=== PATIENT | male | born 1970 | race African-American/Black ===

== ENCOUNTER 2025-05-27 19:29 | Emergency (ER) | payer BC, SELFPAY ==
--- NOTE | ~2025-05-27 | CT_ITS ---
CT abdomen pelvis w con Clinical History: abdominal pain . Comparison: None Technique: Axial images lung bases to symphysis pubis 100 mL Omnipaque 350 Coronal, sagittal reformats CT images acquired with automatic exposure control for dose reduction DLP: 507 mGy-cm Findings: Lung bases: 11 mm nodule left base with central calcification. Visualized heart and pericardium: Unremarkable. Liver: Steatosis. Gallbladder: Unremarkable. Spleen: Unremarkable. Pancreas: Unremarkable. Adrenal glands: Unremarkable. Kidneys: Right kidney- No hydronephrosis. No renal stones. Left kidney- No hydronephrosis. No renal stones. Distal esophagus/stomach: Unremarkable. Small bowel loops: Normal caliber and wall thickness. Colon: Normal caliber and wall thickness. Normal RLQ appendix. Nodes: No enlarged nodes. Peritoneum: No ascites. No free air. Urinary bladder: Unremarkable. Prostate: Prominent. Bones: No acute bony abnormality. Soft tissues: Mild gynecomastia. Aorta: No aneurysm or dissection. IVC: Unremarkable. Main portal vein/SMV/splenic vein: Patent. IMPRESSION: 1. No acute findings. Reviewed, dictated and finalized at location R. IOLOGIST IMPRESSION: 1. No acute findings.
--- OUTSIDE RECORDS SUMMARY | 2025-05-27 15:45 | XMS_ITS | Encounter Summary ---
Author Organization [facility] Healthcare Address [address] [place] [id number] Care Team Providers Care Freight Conductor Name Role Phone Steph Suarez MD Primary Care Provider [phone] Reason for Visit * Reason Comments Urinary Frequency Encounter Details Date Type Department Care Team (Late st Contact Info) Description 05/27/2025 3:45 PM BUSINESS MANAGEMENT CONSULTANT Office Visit [facility] Family Medicine [address] [place] [address] [address] [place] [address] Steph Suarez MD [address] [place] [address] [address] [place] [address] Urinary frequency (Primary Dx); Essential hypertension; Type 2 diabetes mellitus without complication, without long-term current use of insulin (HCC); Mixed hyperlipidemia; Well adult exam Social History Tobacco Use Types Packs/Day Years Used Date Smoking Tobacco: Never Smokeless Tobacco: Never Alcohol Use Standard Drinks/Week Comments Yes 0 (1 standard drink = 0.6 oz pur e alcohol) AUDIT-C Answer Date Recorded Q1: How often do you have a drink containing alcohol? Never 01/17/2024 Q2: How many drinks containi ng alcohol do you have on a typical day when you are drinking? Patient does not drink Q3: How often do you have si x or more drinks on one occasion? Never 01/17/2024 PHQ-2 Answer Date Recorded PHQ-2 Total Score (If total score is 3 or more points, staff should administer the PHQ-9) 0 05/27/2025 PHQ-9 Answer Date Recorded PHQ-9 Total Score 9 05/27/2025 Sex and Gender Information Value Date Recorded Sex Assigned at Not on file Legal Sex Male 6:12 PM BUSINESS MANAGEMENT CONSULTANT Gender Identity Not on file Sexual Orientation Not on file documented as of this encounter Last Filed Vital Signs Vital Sign Reading Time Taken Comments Blood Pressure 138/90 05/27/2025 4:16 PM BUSINESS MANAGEMENT CONSULTANT Pulse 78 05/27/2025 4:16 PM BUSINESS MANAGEMENT CONSULTANT Temperature 37 C (98.6 F) 05/27/2025 4:16 PM BUSINESS MANAGEMENT CONSULTANT Respiratory Rate 16 05/27/2025 4:16 PM BUSINESS MANAGEMENT CONSULTANT Oxygen Saturation 98% 05/27/2025 4:16 PM BUSINESS MANAGEMENT CONSULTANT Inhaled Oxygen Concentration - - Weight 87.2 kg (192 lb 3.2 oz) 05/27/2025 4:16 P M BUSINESS MANAGEMENT CONSULTANT Height 175.3 cm (5' 9) 05/27/2025 4:16 PM BUSINESS MANAGEMENT CONSULTANT Body Mass Index 28.38 05/27/2025 4:16 PM BUSINESS MANAGEMENT CONSULTANT documented in this encounter Functional Status documented as of this encounter Ordered Prescriptions Prescription Sig Dispense Quantity Refills Last Filled Start Date End Date cefdinir (OMNICEF) 300 mg capsuleIndications :Urinary frequency Take 1 capsule (300 mg total) by mouth 2 (two) times a day for 10 days 20 capsule 05/27/2025 amLODIPine (NORVASC) 2.5 mg tablet Take 1 tablet (2.5 mg total) by mouth daily 30 tablet 1 05/27/2025 documented in this encounter Miscellaneous Notes * Assessment & Plan Note - Steph Suarez MD - 05/27/2025 3:45 PM BUSINESS MANAGEMENT CONSULTANT Associated Problem(s): Essential hypertension Orders: Urine culture Urine, clean voided; Future Thyroid Function [place]; Future PSA screen; Future Hemoglobin A1c; Future Urinalysis reflex to microscopic; Future Comprehensive metabolic panel; Future Lipid panel; Future CBC with auto differential; Future Albumin Creatinine Ratio, Urine; Future NESS MANAGEMENT CONSULTANT * Assessment & Plan Note - Steph Suarez MD - 05/27/2025 3:45 PM BUSINESS MANAGEMENT CONSULTANT Associated Problem(s): Urinary frequency Orders: Urine culture Urine, clean voided; Future Thyroid Function [place]; Future PSA screen; Future Hemoglobin A1c; Future Urinalysis reflex to microscopic; Future Comprehensive metabolic panel; Future Lipid panel; Future CBC with auto differential; Future Albumin Creatinine Ratio, Urine; Future cefdinir (OMNICEF) 300 mg capsule; Take 1 capsule (300 mg total) by mouth 2 (two) times a day for 10 days NESS MANAGEMENT CONSULTANT * Assessment & Plan Note - Steph Suarez MD - 05/27/2025 3:45 PM BUSINESS MANAGEMENT CONSULTANT Associated Problem(s): Type 2 diabetes mellitus Orders: Urine culture Urine, clean voided; Future Thyroid Function [place]; Future PSA screen; Future Hemoglobin A1c; Future Urinalysis reflex to microscopic; Future Comprehensive metabolic panel; Future Lipid panel; Future CBC with auto differential; Future Albumin Creatinine Ratio, Urine; Future NESS MANAGEMENT CONSULTANT * Assessment & Plan Note - Steph Suarez MD - 05/27/2025 3:45 PM BUSINESS MANAGEMENT CONSULTANT Associated Problem(s): Hyperlipidemia Orders: Urine culture Urine, clean voided; Future Thyroid Function [place]; Future PSA screen; Future Hemoglobin A1c; Future Urinalysis reflex to microscopic; Future Comprehensive metabolic panel; Future Lipid panel; Future CBC with auto differential; Future Albumin Creatinine Ratio, Urine; Future NESS MANAGEMENT CONSULTANT * Assessment & Plan Note - Steph Suarez MD - 05/27/2025 3:45 PM BUSINESS MANAGEMENT CONSULTANT Associated Problem(s): Well adult exam Orders: Urine culture Urine, clean voided; Future Thyroid Function [place]; Future PSA screen; Future Hemoglobin A1c; Future Urinalysis reflex to microscopic; Future Comprehensive metabolic panel; Future Lipid panel; Future CBC with auto differential; Future Albumin Creatinine Ratio, Urine; Future NESS MANAGEMENT CONSULTANT documented in this encounter Plan of Treatment Pending Results Name Type Priority Associated Diagnoses Date /Time Urine culture Urine, clean voided Microbiology Routine Urinary frequency Type 2 diabetes mellitus without complication, without long-term current use of insulin (HCC) Well adult exam 05/27/2025 4:43 PM BUSINESS MANAGEMENT CONSULTANT Scheduled Orders Name Type Priority Associated Diagnoses Orde r Schedule Albumin Creatinine Ratio, Urine Lab Routine Urinary frequency Essential hypertension Type 2 diabetes mellitus without complication, without long-term current use of insulin (HCC) Mixed hyperlipidemia Well adult exam Expected: 05/27/2025, Expires: 05/27/2026 CBC with auto differential Lab Routine Urinary frequency Essential hypertension Type 2 diabetes mellitus without complication, without long-term current use of insulin (HCC) Mixed hyperlipidemia Well adult exam Expected: 05/27/2025, Expires: 05/27/2026 Comprehensive metabolic panel Lab Routine Urinary frequency Essential hypertension Type 2 diabetes mellitus without complication, without long-term current use of insulin (HCC) Mixed hyperlipidemia Well adult exam Expected: 05/27/2025, Expires: 05/27/2026 Hemoglobin A1c Lab Routine Urinary frequency Essential hypertension Type 2 diabetes mellitus without complication, without long-term current use of insulin (HCC) Mixed hyperlipidemia Well adult exam Expected: 05/27/2025, Expires: 05/27/2026 Lipid panel Lab Routine Urinary frequency Essential hypertension Type 2 diabetes mellitus without complication, without long-term current use of insulin (HCC) Mixed hyperlipidemia Well adult exam Expected: 05/27/2025, Expires: 05/27/2026 PSA screen Lab Routine Urinary frequency Essential hypertension Type 2 diabetes mellitus without complication, without long-term current use of insulin (HCC) Mixed hyperlipidemia Well adult exam Expected: 05/27/2025, Expires: 05/27/2026 Thyroid Function [place] Lab Routine Urinary frequency Essential hypertension Type 2 diabetes mellitus without complication, without long-term current use of insulin (HCC) Mixed hyperlipidemia Well adult exam Expected: 05/27/2025, Expires: 05/27/2026 Urinalysis reflex to microscopic Lab Routine Urinary frequency Essential hypertension Type 2 diabetes mellitus without complication, without long-term current use of insulin (HCC) Mixed hyperlipidemia Well adult exam Expected: 05/27/2025, Expires: 05/27/2026 Urine culture Urine, clean voided Microbiology Routine Urinary frequency Essential hypertension Type 2 diabetes mellitus without complication, without long-term current use of insulin (HCC) Mixed hyperlipidemia Well adult exam Expected: 05/27/2025, Expires: 05/27/2026 Urine culture Urine, clean voided Microbiology Routine Urinary frequency Type 2 diabetes mellitus without complication, without long-term current use of insulin (HCC) Well adult exam Expected: 05/27/2025, Expires: 05/27/2026 documented as of this encounter Procedures Procedure Name Priority Date/Time Associated Diagnosis Comments POCT URINALYSIS DIPSTICK Routine 05/27/2025 4:41 PM BUSINESS MANAGEMENT CONSULTANT Urinary frequency Type 2 diabetes mellitus without complication, without long-term current use of insulin (HCC) Well adult exam documented in this encounter Results * (ABNORMAL) POCT urinalysis dipstick (05/27/2025 4:41 PM BUSINESS MANAGEMENT CONSULTANT) Color, Urine, POC Yellow Clarity, ur, POC Clear Clear Glucose, ur, POC 1000.(A) Negative Bilirubin, ur, POC Negative Negative Ketones, ur, POC Negative Negative Specific [place], POC 1.020 1.003 - 1.030 Blood, ur, POC Negative Negative pH, ur, POC 5.5 5.0 - 8.0 Protein, ur, POC Negative Negative Urobilinogen, urine, POC 0.2 0.2 - 1.0 mg/dL Nitrite, ur, POC Negative Negative Leukocytes, ur, POC Negative Negative Lot Number [id number] Urine 05/27/2025 4:41 PM BUSINESS MANAGEMENT CONSULTANT Steph Suarez MD POINT OF CARE TEST ORDERA BLES Final Result documented in this encounter Visit Diagnoses Diagnosis Urinary frequency- Primary Essential hypertension Unspecified essential hypertension Type 2 diabetes mellitus without complication, without long-term current use of insulin (HCC) Mixed hyperlipidemia Well adult exam Routine general medical examination at a health care facility documented in this encounter Care Teams Freight Conductor Relationship Specialty Start Date End Date Steph Suarez MD PCP - General Family Medicine 10/18/18 documented as of this encounter
--- OUTSIDE RECORDS SUMMARY | 2025-05-27 16:56 | XMS_ITS | Encounter Summary ---
Author Organization [facility] Healthcare Address [address] [place] [address] Care Team Providers Care Copy Lathe Operator Name Role Phone Steph Suarez MD Primary Care Provider [phone] Encounter Details Date Type Department Care Team (Latest Contact Info) Description 05/27/2025 4:56 PM COLD MOLDING PRESS OPERATOR - 05/27/2025 11:59 PM COLD MOLDING PRESS OPERATOR Hospital Encounter [facility] [address] [place] [id number] Urinary frequency; Type 2 diabetes mellitus without complication, without long-term current use of insulin (HCC); Well adult exam Discharge Disposition: Discharge to home or self care Social History Tobacco Use Types Packs/Day Years [...] on file Legal Sex Male 6:12 PM COLD MOLDING PRESS OPERATOR Gender Identity Not on file Sexual Orientation Not on file documented as of this encounter Functional Status documented as of this encounter Medications at Time of Discharge amLODIPine (NORVASC) 2.5 mg tablet Take 1 tablet (2.5 mg total) by mouth daily 30 tablet 1 05/27/2025 atorvastatin (LIPITOR) 10 mg tablet Take 1 tablet (10 mg total) by mouth daily 90 tablet 3 12/13/2024 blood-glucose sensor device Freestyle tevin 3 plus. Change every 15 days 2 each 3 12/14/2024 cefdinir (OMNICEF) 300 mg capsuleIndicatio ns:Urinary frequency Take 1 capsule (300 mg total) by mouth 2 (two) times a day for 10 days 20 capsule 05/27/2025 metFORMIN (GLUCOPHAGE) 1,000 mg tablet Take 1 tablet (1,000 mg total) by mouth daily with breakfast 90 tablet 1 12/13/2024 mometasone (ELOCON) 0.1 % creamIndications :Intrinsic eczema Apply topically daily 45 g 12/13/2024 olmesartan-hydro chlorothiazide (BENICAR HCT) 40-25 mg per tablet Take 1 tablet by mouth daily 90 tablet 3 12/13/2024 documented as of this encounter Discharge Disposition Disposition Code Departure Means Destination Discharge to home or self care documented in this encounter Plan of Treatment Pending Results Name Type Priority Associated Diagnoses Date /Time Urine culture Urine, clean voided Microbiology Routine Urinary frequency Type 2 diabetes mellitus without complication, without long-term current use of insulin (HCC) Well adult exam 05/27/2025 4:43 PM COLD MOLDING PRESS OPERATOR Scheduled Orders Name Type Priority Associated Diagnoses Orde r Schedule Urine culture Urine, clean voided Microbiology Routine Urinary frequency Type 2 diabetes mellitus without complication, without long-term current use of insulin (HCC) Well adult exam Once for 1 Occurrences starting 05/27/2025 until 05/27/2025 documented as of this encounter Visit Diagnoses Diagnosis Urinary frequency Type 2 diabetes mellitus without complication, without long-term current use of insulin (HCC) Well adult exam Routine general medical examination at a health care facility documented in this encounter Care Teams Copy Lathe Operator Relationship Specialty Start Date End Date Steph Suarez MD PCP - General Family Medicine 10/18/18 documented as of this encounter
[2025-05-27 19:31] VITALS: BP 169/98; PULSE 75; RESP 16; TEMP 36.6; O2SAT 100
[2025-05-28 01:51] LABS: Add Urine Microscopic? NO; Appearance Urine Clear (Clear); Glucose Urine UA 3+ mg/dL (Negative); Leukocyte Esterase Ur Negative LEU/UL (Negative); Nitrate Urine Negative (Negative); Specific Grav Ur 1.029 (1.001-1.035)
[2025-05-28 02:04] LABS: Hematocrit 44.7 % (42.0-52.0); Hemoglobin 14.1 g/dL (14.0-18.0); Immature Granulocyte Percent A 0.1 % (0-0.5); Lymphocytes Absolute Auto 2.55 K/mm3 (0.9-3.2); Mean Corpuscular HGB Conc 31.5 g/dl (32-36); Mean Corpuscular Hemoglobin 26.4 pg (26-34); Mean Corpuscular Volume 83.6 fl (80-100); Nucleated Red Blood Cells Absolute Auto 0.000 K/mm3 (0.0-0.012); Nucleated Red Blood Cells Perc 0.0 % (0.0-0.2); Platelet Count Result 215 k/mm3 (150-375); Red Blood Count 5.35 M/mm3 (4.6-6.20); White Blood Count 7.2 K/mm3 (4.5-10.0)
[2025-05-28 02:09] LABS: Alanine Aminotransferase 26 U/L (6-50); Albumin Level 4.6 g/dL (3.5-5.1); Alkaline Phosphatase 78 U/L (38-126); Anion Gap 9 mmol/L (4-12); Aspartate Amino Transferase 32 U/L (17-59); Bilirubin,Total 0.7 mg/dL (0.2-1.3); Blood Urea Nitrogen 20 mg/dL (9-20); Calcium 9.6 mg/dL (8.4-10.2); Carbon Dioxide 29 mmol/L (22-30); Chloride 101 mmol/L (98-107); Estimated CRCL calculation 68 ml/min; Estimated Glomerular Filt Rate > 60; Glucose 131 mg/dL (65-110); Lipase 137 U/L (23-300); Potassium 3.6 mmol/L (3.4-5.0); Sodium 139 mmol/L (137-145); Total Protein 8.2 g/dL (6.3-8.2)
--- NOTE | 2025-05-28 02:48 | ED_ITS ---
HPI - General Adult General Chief complaint: Recheck/Abnormal Lab/Rx Stated complaint: high blood sugar Time Seen by Provider: 05/28/25 02:36 Source: patient Mode of arrival: ambulatory Limitations: no limitations History of Present Illness HPI narrative: Patient is a 54-year-old male presents to the emergency department accompanied by complaining of frequent urination and have normal lab. Patient notes that he says primary and had a urine study done in the head high sugar in his urine and was looking upon lining been very concerned that this be very serious. Patient is a diabetic is been taking his medications as prescribed, is on oral medications. Patient denies any polydipsia. Patient notes he has been noticing some right lower quadrant right pelvis region discomfort. Did take some antibiotics not long ago it is unclear of the returned. Denies any fevers. Denies chest pain difficulty breathing, nausea, vomiting, diarrhea, testicle pain, testicular swelling. Patient denies any penile discharge. Patient was any rashes. Patient notes went to frequent urination he is having dribbling without much output when he does urinate. Related Data Allergies Allergy/AdvReac Type Severity Reaction Status Date / Time No Known Allergies Allergy Verified 05/27/25 19:30 Review of Systems 2 Review of Systems: A 10 system review of systems was completed on the patient and is negative except for what is stated in the HPI. Nursing and ancillary documentation was reviewed. Exam 2 Narrative: CONST: No acute distress. Well nourished. HENMT: Head is normocephalic and atraumatic. Moist mucous membranes. No posterior oropharynx erythema. EYES: No scleral icterus. No conjunctival injection or pallor. PERRL. NECK: No meningeal signs. RESP: Able to speak in full sentences. Normal respiratory effort. CTAB. CARDIO: Regular rate. Regular rhythm. 2+ DP and radial pulses bilaterally. GI: Nondistended. No tenderness to palpation. Soft. No palpable hernias. : No CVA tenderness to palpation. No palpable hernias. SKIN: No rashes or lesions noted on exposed skin. NEURO: Oriented x3. Moves all extremities. EXTREM/MSK/BACK: No pedal edema. PSYCH: Normal affect. Course Vital Signs Vital signs: Vital Signs Temperature 97.9 F 05/27/25 19:31 Pulse Rate 75 05/27/25 19:31 Respiratory Rate 16 05/27/25 19:31 Blood Pressure 169/98 H 05/27/25 19:31 Pulse Oximetry 100 05/27/25 19:31 Oxygen Delivery Room Air 05/27/25 19:31 Temperature 97.9 F 05/27/25 19:31 Pulse Rate 85 05/28/25 05:12 Respiratory Rate 18 05/28/25 05:12 Blood Pressure 105/61 05/28/25 05:12 Pulse Oximetry 100 05/28/25 05:12 Oxygen Delivery Room Air 05/27/25 19:31 [facility] Narrative Medical decision making narrative: Patient presents with the above complaint. Initial vitals are remarkable for no significant abnormalities. Physical examination as noted above. Plan discussed: Laboratory analysis, CT abdomen pelvis, postvoid residual. Patient was reassessed at the bedside. No changes in physical exam. Patient is in no acute distress. The patient has remained stable throughout the entire ED visit. Counseled patient regarding diagnostic results and potential diagnosis. Anticipatory guidance provided. Patient instructed to follow up with PCP within 1 week. Patient counseled on: false reassurance from an emergency department evaluation; no current evidence of a medical emergency; return immediately for any new, recurrent, worsening, concerning, or refractory symptoms. Medications discussed with patient. Additional verbal and printed discharge instructions were given and discussed with the patient. Patient verbally acknowledges understanding of condition and discharge instructions. All questions were answered to the patient's satisfaction. Patient is in agreement with the plan of care. The patient is stable for discharge and was discharged without incident. Differential Diagnosis Differential Diagnosis: UTI, prostatitis, metabolic derangement, electrolyte derangement, appendicitis, hernia, other acute surgical abdominal process. Lab Data [facility] Lab Attestation statement: I personally reviewed the patient's lab results. Lab results narrative: CBC is without any significant abnormalities. Comprehensive metabolic panel reveals a glucose of 131. Lipase is 137. Urinalysis reveals 3+ glucose. 05/28/25 01:39 05/28/25 01:39 Labs: Lab Results 05/27/25 05/28/25 Range/Units 19:36 01:39 WBC 7.2 (4.5-10.0) K/mm3 RBC 5.35 (4.6-6.20) M/mm3 Hgb 14.1 (14.0-18.0) g/dL Hct 44.7 (42.0-52.0) % MCV 83.6 (80-100) fl MCH 26.4 (26-34) pg MCHC 31.5 L (32-36) g/dl RDW 14.7 H (11.5-14.5) % Plt Count 215 (150-375) k/mm3 MPV 11.9 H (7.4-10.4) fl Immature Gran % (Auto) 0.1 (0-0.5) % Neut % (Auto) 54.5 (45.5-73.1) % Lymph % (Auto) 35.4 (18.3-44.2) % [place] % (Auto) 8.6 H (2.6-8.5) % Eos % (Auto) 1.0 (0-4.4) % Baso % (Auto) 0.4 (0.2-1.2) % Lymph # (Auto) 2.55 (0.9-3.2) K/mm3 [place] # (Auto) 0.6 (0.1-0.6) K/mm3 Eos # (Auto) 0.1 (0-0.3) K/mm3 Baso # (Auto) 0.0 (0.0-0.1) K/mm3 Abs Immat Gran (auto) 0.01 (0.00-0.031) K/mm3 Absolute Neuts (auto) 3.9 (1.3-6.7) K/mm3 Absolute Nucleated RBC 0.000 (0.0-0.012) K/mm3 Nucleated RBC % 0.0 (0.0-0.2) % Sodium 139 (137-145) mmol/L Potassium 3.6 (3.4-5.0) mmol/L Chloride 101 (98-107) mmol/L Carbon Dioxide 29 (22-30) mmol/L Anion Gap 9 (4-12) mmol/L BUN 20 (9-20) mg/dL Creatinine 1.11 (0.7-1.3) mg/dL Estim Creat Clear Calc 68 ml/min Estimated GFR > 60 (59 - ) Glucose 131 H (65-110) mg/dL POC Capillary Glucose 102 (65-105) mg/dl Calcium 9.6 (8.4-10.2) mg/dL Total Bilirubin 0.7 (0.2-1.3) mg/dL AST 32 (17-59) U/L ALT 26 (6-50) U/L Alkaline Phosphatase 78 (38-126) U/L Total Protein 8.2 (6.3-8.2) g/dL Albumin 4.6 (3.5-5.1) g/dL Lipase 137 (23-300) U/L Urine Color Yellow (Yellow) Urine Appearance Clear (Clear) Urine pH 5.0 (5.0-9.0) Ur Specific [place] 1.029 (1.001-1.035) Urine Protein Negative (Negative) mg/dL Urine Glucose (UA) 3+ H (Negative) mg/dL Urine Ketones Negative (Negative) mg/dL Ur Blood (Man) Negative (Negative) Urine Nitrate Negative (Negative) Urine Bilirubin Negative (Negative) Urine Urobilinogen 0.2 (<2.0) mg/dL Leukocyte Esterase Rfl Negative (Negative) GIOVANA/UL Imaging Data Radiologist's impression: ITS Impressions Abdomen/Pelvis CT 05/28/25 07:30 IMPRESSION: 1. No acute findings. Discharge Plan Discharge Clinical Impression: Glucosuria Abdominal pain Qualifiers: Abdominal location: right lower quadrant Qualified Code(s): R10.31 - Right lower quadrant pain Patient Disposition: Home Condition: Stable Instructions: Antibiotic Form, Abdominal Pain (ED) Additional Instructions: Follow-up with your primary care physician in the next few days for reassessment, rest and stay well hydrated, continue taking home medications as prescribed. He can take Tylenol as needed for any discomfort. Return immediately to the emergency department for any new or concerning symptoms especially any emergent concerns for life, limb, eyesight. Patient Language: Swedish Follow-up/Referrals: PHYSICIAN NOT ON STAFF,NONSTAFF [Non-Staff] Time of Disposition: 07:39
--- OUTSIDE RECORDS SUMMARY | 2025-05-28 03:01 | XMS_ITS | Clinical Summary ---
Author Organization [facility] Address [address] [place] [address] Care Team Providers Care Motor Installer Name Role Phone Steph Suarez MD Primary Care Provider [phone] Allergies No known active allergies Medications atorvastatin (LIPITOR) 10 mg tablet Take 1 tablet (10 mg total) by mouth daily 90 tablet 3 5 Active empagliflozin-m etformin (Synjardy XR) 25-1,000 mg tablet, IR & ER, biphasic 24hr Take 1 tablet by mouth daily 90 tablet 3 5 Active metFORMIN (GLUCOPHAGE) 1,000 mg tablet Take 1 tablet (1,000 mg total) by mouth daily with breakfast 90 tablet 1 5 Active olmesartan-hydr ochlorothiazide (BENICAR HCT) 40-25 mg per tablet Take 1 tablet by mouth daily 90 tablet 3 5 Active mometasone (ELOCON) 0.1 % creamIndication s:Intrinsic eczema Apply topically daily 45 g 5 Active blood-glucose sensor device Freestyle tevin 3 plus. Change every 15 days 2 each 3 5 Active amLODIPine (NORVASC) 2.5 mg tablet Take 1 tablet (2.5 mg total) by mouth daily 30 tablet 1 5 Active cefdinir (OMNICEF) 300 mg capsuleIndicati ons:Urinary frequency Take 1 capsule (300 mg total) by mouth 2 (two) times a day for 10 days 20 capsule 12/01/06/06/20 25 Active Active Problems Problem Noted Date Diagnosed Date Urinary frequency 05/27/2025 Assessment & Plan (05/27/2025 4:24 PM UNIVERSITY DEMONSTRATOR): Orders: Urine culture Urine, clean voided; Future Thyroid Function [place]o; Future PSA screen; Future Hemoglobin A1c; Future Urinalysis reflex to microscopic; Future Comprehensive metabolic panel; Future Lipid panel; Future CBC with auto differential; Future Albumin Creatinine Ratio, Urine; Future cefdinir (OMNICEF) 300 mg capsule; Take 1 capsule (300 mg total) by mouth 2 (two) times a day for 10 days Hypertension associated with diabetes 12/23/2024 Assessment & Plan (12/23/2024 7:11 PM CDT): Type 2 diabetes mellitus with hyperlipidemia Assessment & Plan (12/23/2024 7:11 PM CDT): Screening for colon cancer 12/13/2024 Assessment & Plan (12/23/2024 7:11 PM CDT): Orders: Stool DNA - Cologuard; Future Flexural eczema 12/13/2024 Screening for prostate cancer 12/13/2024 Assessment & Plan (12/23/2024 7:11 PM CDT): Orders: PSA screen; Future CBC with auto differential; Future Comprehensive metabolic panel; Future Albumin Creatinine Ratio, Urine; Future Lipid panel; Future Thyroid Function Jer[place]o; Future Hemoglobin A1c; Future Well adult exam 12/13/2024 Assessment & Plan (05/27/2025 4:24 PM UNIVERSITY DEMONSTRATOR): Orders: Urine culture Urine, clean voided; Future Thyroid Function [place]o; Future PSA screen; Future Hemoglobin A1c; Future Urinalysis reflex to microscopic; Future Comprehensive metabolic panel; Future Lipid panel; Future CBC with auto differential; Future Albumin Creatinine Ratio, Urine; Future Assessment & Plan (12/23/2024 7:11 PM CDT): Orders: PSA screen; Future CBC with auto differential; Future Comprehensive metabolic panel; Future Albumin Creatinine Ratio, Urine; Future Lipid panel; Future Thyroid Function Jericho; Future Hemoglobin A1c; Future Intrinsic eczema 12/13/2024 Assessment & Plan (12/23/2024 7:11 PM CDT): New Order elocon prn Orders: mometasone (ELOCON) 0.1 % cream; Apply topically daily Chronic eczematous otitis externa of both ears 1 06/29/2021 Assessment & Plan (04/29/2022 8:36 PM CDT): I explained that this is a very common and chronic condition. He does appear to have some history of scalp dermatitis. I told him that that can extend to the ears. I recommended that when he is using his dander shampoo he try latter Ng his ears a little bit with that. He can also use a steroid cream or ointment once or twice a day as needed for the itching. After further discussion he indicated that he understands. He is going to follow up with me if he has any further problems. Bilateral impacted cerumen 04/29/2022 Assessment & Plan (04/29/2022 8:35 PM CDT): His ears were cleaned. Quite a bit of wax. I recommended avoiding Q-tips. He understands that. Need for immunization against influenza 04/05/20 22 Ear pain, bilateral 03/21/2021 Assessment & Plan (04/09/2022 4:14 PM CDT): New Refer to ENT Assessment & Plan (03/27/2021 11:46 AM CDT): New Order rosa m ibanez Recurrent maxillary sinusitis 03/21/2021 Assessment & Plan (03/27/2021 11:46 AM CDT): New Order rosa m ibanez Uncontrolled hypertension 04/23/2020 Assessment & Plan (01/17/2024 5:06 PM CDT): Chronic Stable Tolerating Benicar Assessment & Plan (04/23/2020 3:42 PM CDT): Uncontrolled Increase losartan 100mg daily Cont hctz Uncontrolled type 2 diabetes mellitus with hyper glycemia 04/23/2020 Assessment & Plan (01/17/2024 5:09 PM CDT): Chronic Stable Continue Synjardy Assessment & Plan (08/13/2022 3:21 AM UNIVERSITY DEMONSTRATOR): Borderline Increase synjardy xr ot 25/1000mg daily Goal Hgba1c<6.5 Assessment & Plan (04/26/2022 4:58 PM CDT): Uncontrolled Start synjardy xr Stop the metformin and jardiance separately Goal Hgba1c<6.5 Assessment & Plan (04/09/2022 5:28 AM CDT): Uncontrolled Restart jardiance Cont glucophage Goal Hgba1c<6.5 Assessment & Plan (03/27/2021 11:46 AM CDT): Uncontrolled Restart jardiance Cont glucophage Goal Hgba1c<6.5 Assessment & Plan (06/03/2020 6:17 PM UNIVERSITY DEMONSTRATOR): Improving Cont metformin and jardiance Assessment & Plan (04/23/2020 3:42 PM CDT): Uncontrolled Add jardiance 10mg daily Cont metformin Adult general medical exam 04/02/2020 Assessment & Plan (12/23/2024 7:11 PM CDT): Orders: PSA screen; Future CBC with auto differential; Future Comprehensive metabolic panel; Future Albumin Creatinine Ratio, Urine; Future Lipid panel; Future Thyroid Function [place]o; Future Hemoglobin A1c; Future Essential hypertension 08/20/2019 Assessment & Plan (05/27/2025 4:24 PM UNIVERSITY DEMONSTRATOR): Orders: Urine culture Urine, clean voided; Future Thyroid Function [place]o; Future PSA screen; Future Hemoglobin A1c; Future Urinalysis reflex to microscopic; Future Comprehensive metabolic panel; Future Lipid panel; Future CBC with auto differential; Future Albumin Creatinine Ratio, Urine; Future Assessment & Plan (12/23/2024 7:11 PM CDT): Chronic Stable Cont benicar/hctz Goal: SBP<140, DBP<90 Orders: PSA screen; Future CBC with auto differential; Future Comprehensive metabolic panel; Future Albumin Creatinine Ratio, Urine; Future Lipid panel; Future Thyroid Function Jericho; Future Hemoglobin A1c; Future Assessment & Plan (08/13/2022 3:20 AM UNIVERSITY DEMONSTRATOR): Uncontrolled Stop losartan Start edarbi 40mg daily Goal: SBP<140, DBP<90 Assessment & Plan (04/26/2022 4:57 PM CDT): Chronic Stable Cont losartan Assessment & Plan (04/09/2022 5:27 AM CDT): Better Cont losartan, hctz Assessment & Plan (03/27/2021 11:46 AM CDT): Better Cont losartan, hctz Goal:SBP<140, DBP<90 Assessment & Plan (12/08/2020 6:00 AM CDT): Better Cont losartan, hctz Assessment & Plan (06/03/2020 6:17 PM UNIVERSITY DEMONSTRATOR): Better Cont losartan, hctz Assessment & Plan (04/03/2020 4:55 AM CDT): Elevated Monitor BP Cont cozaar, hctz Type 2 diabetes mellitus 07/26/2018 Assessment & Plan (05/27/2025 4:24 PM UNIVERSITY DEMONSTRATOR): Orders: Urine culture Urine, clean voided; Future Thyroid Function [place]o; Future PSA screen; Future Hemoglobin A1c; Future Urinalysis reflex to microscopic; Future Comprehensive metabolic panel; Future Lipid panel; Future CBC with auto differential; Future Albumin Creatinine Ratio, Urine; Future Assessment & Plan (12/23/2024 7:11 PM CDT): Chronic Stable Cont synjardy Goal Hgba1c<6.5 Orders: PSA screen; Future CBC with auto differential; Future Comprehensive metabolic panel; Future Albumin Creatinine Ratio, Urine; Future Lipid panel; Future Thyroid Function [place]icho; Future Hemoglobin A1c; Future Ambulatory referral to Podiatry; Future Assessment & Plan (12/08/2020 6:01 AM CDT): Stable Cont glucophage, jardiance Assessment & Plan (04/03/2020 4:55 AM CDT): Get updated labs Cont glucophage Fatigue 10/28/2015 Hyperlipidemia 10/28/2015 Assessment & Plan (05/27/2025 4:24 PM UNIVERSITY DEMONSTRATOR): Orders: Urine culture Urine, clean voided; Future Thyroid Function [place]o; Future PSA screen; Future Hemoglobin A1c; Future Urinalysis reflex to microscopic; Future Comprehensive metabolic panel; Future Lipid panel; Future CBC with auto differential; Future Albumin Creatinine Ratio, Urine; Future Assessment & Plan (12/23/2024 7:11 PM CDT): Chronic Stable Cont lipitor Goal: TC<200, LDL<100, TG<150 Orders: PSA screen; Future CBC with auto differential; Future Comprehensive metabolic panel; Future Albumin Creatinine Ratio, Urine; Future Lipid panel; Future Thyroid Function [place]icho; Future Hemoglobin A1c; Future Assessment & Plan (01/17/2024 5:06 PM CDT): Chronic Patient labs not drawn Cont lipitor Goal: TC<200, LDL<100 Assessment & Plan (08/13/2022 3:22 AM UNIVERSITY DEMONSTRATOR): Chronic stable Cont lipitor Goal: TC<200, LDL<100 Assessment & Plan (04/26/2022 4:57 PM CDT): stable Cont lipitor Goal: TC<200, LDL<100 Assessment & Plan (04/09/2022 5:27 AM CDT): stable Cont lipitor Goal: TC<200, LDL<100 Assessment & Plan (03/27/2021 11:45 AM CDT): stable Cont lipitor Goal: TC<200, LDL<100 Assessment & Plan (12/08/2020 6:00 AM CDT): stable Cont lipitor Assessment & Plan (04/23/2020 3:41 PM CDT): stable Cont lipitor Assessment & Plan (04/03/2020 4:55 AM CDT): Get updated lipid profile Cont lipitor Resolved Problems Problem Noted Date Diagnosed Date Resolved Date Hypercholesterolemia 08/20/2019 020 Colon cancer screening 11/25/201508/20 Ear pain 10/28/2015 08/20/2019 Hypertension 10/28/2015 04/02/2020 Otitis externa 10/28/2015 08/20/2019 Right knee pain 10/28/2015 08/20/2019 Upper respiratory infection 10/28/2015 08/20/2019 Encounters Date Type Department Care Team Description 05/27/2025 4:56 PM UNIVERSITY DEMONSTRATOR - 05/27/2025 11:59 PM UNIVERSITY DEMONSTRATOR Hospital Encounter [facility] [address] [place] [address] Urinary frequency; Type 2 diabetes mellitus without complication, without long-term current use of insulin (HCC); Well adult exam Discharge Disposition: Discharge to home or self care 05/27/2025 3:45 PM UNIVERSITY DEMONSTRATOR Office Visit [facility] [address] [facility] [address] [facility] [address] [place] [id number] Steph Suarez MD Urinary frequency (Primary Dx); Essential hypertension; Type 2 diabetes mellitus without complication, without long-term current use of insulin (HCC); Mixed hyperlipidemia; Well adult exam from Last 3 Months Immunizations Immunization Administration Dates Next Due Hep A, Adult 06/12/2002 Influenza, Quadrivalent, Spl it, Preservative Free, Intramuscular 04/05/2022,04/02/2020 Influenza, Trivalent, Preser vative Free, Intramuscular 06/12/2024 Influenza, Unspecified 05/27/2025(Deferr ed: Patient Refused),03/27/2023(Deferred: Patient Refused),04/02/2020(Deferred: Patient Refused),03/27/2019(Deferred: Patient Refused) Surgical History Surgery Date Site/Laterality Comments WISDOM TOOTH EXTRACTION Medical History Medical History Date Comments Diabetes Hypertension Family History Medical History Relation Name Comments Diabetes Maternal Grandmother Relation Name Status Comments Father Alive Maternal Grandmother Mother Alive Social History Tobacco Use Types Packs/Day Years Used Date Smoking Tobacco: Never Smokeless Tobacco: Never Tobacco Cessation:Counseling Given: Not Answered Alcohol Use Standard Drinks/Week Comments Yes 0 [...] on file Legal Sex Male 6:12 PM UNIVERSITY DEMONSTRATOR Gender Identity Not on file Sexual Orientation Not on file Last Filed Vital Signs Vital Sign Reading Time Taken Comments Blood Pressure 138/90 05/27/2025 4:16 PM UNIVERSITY DEMONSTRATOR Pulse 78 05/27/2025 4:16 PM UNIVERSITY DEMONSTRATOR Temperature 37 C (98.6 F) 05/27/2025 4:16 PM UNIVERSITY DEMONSTRATOR Respiratory Rate 16 05/27/2025 4:16 PM UNIVERSITY DEMONSTRATOR Oxygen Saturation 98% 05/27/2025 4:16 PM UNIVERSITY DEMONSTRATOR Inhaled Oxygen Concentration - - Weight 87.2 kg (192 lb 3.2 oz) 05/27/2025 4:16 P M UNIVERSITY DEMONSTRATOR Height 175.3 cm (5' 9) 05/27/2025 4:16 PM UNIVERSITY DEMONSTRATOR Body Mass Index 28.38 05/27/2025 4:16 PM UNIVERSITY DEMONSTRATOR Plan of Treatment Health Maintenance Due Date Last Done Comments Hepatitis C Screening 1971 Dilated Eye Exam 1971 Foot Exam 1971 DTaP/Tdap/Td Vaccine (1 - Tdap) 09/07/1982 Hepatitis B Screening 09/07/1989 Pneumococcal vaccine <65 (1 of 2 - PCV) 09/07/1990 Regular Well Visit/Exam 18-64 08/20/2020 08/20/2019, 08/20/2019 Zoster Vaccine (1 of 2) 09/07/2021 Prostate Cancer Screening-PSA 04/10/2024, 04/07/2020, 10/19/2016 Influenza Vaccine (#1) 2025 , 04/05/2022, 04/02/2020 Albumin Creatinine Ratio, Urine 06/05/2025 06/05/2024, 04/10/2022, 11/21/2015 Hemoglobin A1C 06/09/2025 12/08/2024, 05/27, 06/04/2023, Additional history exists Lipid Panel 12/08/2025 12/08/2024, 05/27, 04/10/2022, Additional history exists eGFR 12/08/2025 12/08/2024, 05/27, 06/04/2023, Additional history exists Depression Screening 05/27/2026 05/27/2025, 05/27/2025, 07/06/2023, Additional history exists Colon Cancer Screening-DNA Stool 01/04/2028 01/04/20 25 Procedures Procedure Name Priority Date/Time Associated Diagnosis Comments POCT URINALYSIS DIPSTICK Routine 05/27/2025 4:41 PM UNIVERSITY DEMONSTRATOR Urinary frequency Type 2 diabetes mellitus without complication, without long-term current use of insulin (HCC) Well adult exam STOOL DNA COLOGUARD Routine 01/03/2025 10:15 PM CDT Screening for colon cancer COMPREHENSIVE METABOLIC PANEL Routine 12/08/2024 10:18 AM CDT Mixed hyperlipidemia Uncontrolled type 2 diabetes mellitus with hyperglycemia (HCC) Uncontrolled hypertension Adult general medical exam HEMOGLOBIN A1C Routine 12/08/2024 10:18 AM CDT Mixed hyperlipidemia Uncontrolled type 2 diabetes mellitus with hyperglycemia (HCC) Uncontrolled hypertension Adult general medical exam LIPID PANEL Routine 12/08/2024 10:18 AM CDT Mixed hyperlipidemia Uncontrolled type 2 diabetes mellitus with hyperglycemia (HCC) Uncontrolled hypertension Adult general medical exam ALBUMIN CREATININE RATIO, URINE Routine 06/05/2024 9:47 AM UNIVERSITY DEMONSTRATOR Uncontrolled type 2 diabetes mellitus with hyperglycemia (HCC) PSA SCREEN Routine 04/10/2022 9:16 AM CDT Uncontrolled type 2 diabetes mellitus with hyperglycemia (HCC) Mixed hyperlipidemia Essential hypertension Adult general medical exam from Last 3 Months or Most Recently Relevant to Health Maintenance Results * (ABNORMAL) POCT urinalysis dipstick (05/27/2025 4:41 PM UNIVERSITY DEMONSTRATOR) Color, Urine, POC Yellow Clarity, ur, POC Clear Clear Glucose, ur, POC 1000.(A) Negative Bilirubin, ur, POC Negative Negative Ketones, ur, POC Negative Negative Specific [place], POC 1.020 1.003 - 1.030 Blood, ur, POC Negative Negative pH, ur, POC 5.5 5.0 - 8.0 Protein, ur, POC Negative Negative Urobilinogen, urine, POC 0.2 0.2 - 1.0 mg/dL Nitrite, ur, POC Negative Negative Leukocytes, ur, POC Negative Negative Lot Number [id number] Urine 05/27/2025 4:41 PM UNIVERSITY DEMONSTRATOR Steph Suarez MD POINT OF CARE TEST ORDERA BLES Final Result * Stool DNA - Cologuard (01/03/2025 10:15 PM CDT) Stool DNA - Cologuard Negative Negative [facility] (CLIA #:[id number]) Comment: The Cologuard (TM) test was performed on this specimen. NEGATIVE TEST RESULT. A negative Cologuard result indicates a low likelihood that a colorectal cancer (CRC) or advanced adenoma (adenomatous polyps with more advanced pre-malignant features) is present. The chance that a person with a negative Cologuard test has a colorectal cancer is less than 1 in 1500 (negative predictive value >99.9%) or has an advanced adenoma is less than 5.3% (negative predictive value 94.7%). These data are based on a prospective cross-sectional study of 10,000 individuals at average risk for colorectal cancer who were screened with both Cologuard and colonoscopy. (Rossy Evans al, N Engl J Med 2014;370(14):1286- 1297) The normal value (reference range) for this assay is negative. COLOGUARD RE-SCREENING RECOMMENDATION: Periodic colorectal cancer screening is an important part of preventive healthcare for asymptomatic individuals at average risk for colorectal cancer. Following a negative Cologuard result, the [place] [employer] and U.S. Multi-Society Task Force screening guidelines recommend a Cologuard re-screening interval of 3 years. References: [place] [employer] Guideline for Colorectal Cancer Screening: https://www.cancer.org/cancer/xkvam-vjciwv-fjcsli/dvaqqxjsm-oeerrxhlm-dbvjtsb/ac s-rec ommendations.html.; Doroteo DK, Immanuel SANFORD, Kayode StarrK, Colorectal Cancer Screening: Recommendations for Physicians and Patients from the U.S. Multi-Society Task Force on Colorectal Cancer Screening , Am J Gastroenterology 2017; 112:8708-5677. TEST DESCRIPTION: Composite algorithmic analysis of stool DNA-biomarkers with hemoglobin immunoassay. Quantitative values of individual biomarkers are not reportable and are not associated with individual biomarker result reference ranges. Cologuard is intended for colorectal cancer screening of adults of either sex, 45 years or older, who are at average-risk for colorectal cancer (CRC). Cologuard has been approved for use by the U.S. FDA. The performance of Cologuard was established in a cross sectional study of average-risk adults aged 50-84. Cologuard performance in patients ages 45 to 49 years was estimated by sub-group analysis of near-age groups. Colonoscopies performed for a positive result may find as the most clinically significant lesion: colorectal cancer [4.0%], advanced adenoma (including sessile serrated polyps greater than or equal to 1cm diameter) [20%] or non- advanced adenoma [31%]; or no colorectal neoplasia [45%]. These estimates are derived from a prospective cross-sectional screening study of 10,000 individuals at average risk for colorectal cancer who were screened with both Cologuard and colonoscopy. (Rossy Evans al, N Engl J Med 2014;370(14):6327-2623.) Cologuard may produce a false negative or false positive result (no colorectal cancer or precancerous polyp present at colonoscopy follow up). A negative Cologuard test result does not guarantee the absence of CRC or advanced adenoma (pre-cancer). The current Cologuard screening interval is every 3 years. ([place] [employer] and U.S. Multi-Society Task Force). Cologuard performance data in a 10,000 patient pivotal study using colonoscopy as the reference method can be accessed at the following location: www.Flitto.com/results. Additional description of the Cologuard test process, warnings and precautions can be found at www.cologuard.com. Stool 01/03/2025 10:1 5 PM CDT 01/18/2025 9:02 AM CDT us Steph Suarez MD LAB BODY FLUIDS AND STOOL S ORDERABLES Final Result Performing Organization Address [facility] Co de Phone Number [facility] (CLIA #:[id number]) [address] [place] [address] * (ABNORMAL) Hemoglobin A1c (12/08/2024 10:18 AM CDT) Hgb A1C 6.1(H) 4.8 - 5.6 % [facility] - 01 Comment: Prediabetes: 5.7 - 6.4 Diabetes: >6.4 Glycemic control for adults with diabetes: <7.0 Blood 12/08/2024 10:1 8 AM CDT 12/08/2024 Narrative [facility] - 12/09/2024 9:36 AM CDT Performed at: [address] [place] [id number] Horn Player: Elijah Cunha PhD, Phone: [phone] us Rosalee Keller NP LAB BLOOD ORDERABLES Final Resu lt Performing Organization Address [facility] Co de Phone Number [facility] - 01 * Lipid panel (12/08/2024 10:18 AM CDT) Cholesterol 119 100 - 199 mg/dL [facility] - 01 Triglycerides 49 0 - 149 mg/dL [facility] - 01 HDL Cholesterol 45 >39 mg/dL [facility] - 01 VLDL 12 5 - 40 mg/dL [facility] - 01 LDL, calculated 62 0 - 99 mg/dL [facility] - 01 Blood 12/08/2024 10:1 8 AM CDT 12/08/2024 Narrative [facility] - 12/09/2024 9:36 AM CDT Performed at: - [address] [id number] Horn Player: Elijah Cunha PhD, Phone: [phone] us Rosalee Keller MANAGER DRUG SAFETY LAB BLOOD ORDERABLES Final Resu lt [facility] - 01 * Comprehensive metabolic panel (12/08/2024 10:18 AM CDT) Glucose 86 70 - 99 mg/dL [facility] - 01 BUN 15 6 - 24 mg/dL [facility] - 01 Creatinine, Serum 1.05 0.76 - 1.27 mg/dL [facility] - 01 eGFR 85 >59 mL/min/1.73 [facility] - 01 BUN/creat ratio 14 9 - 20 [facility] - 01 Sodium 139 134 - 144 mmol/L [facility] - 01 Potassium, sr 4.1 3.5 - 5.2 mmol/L [facility] - 01 Chloride 101 96 - 106 mmol/L [facility] - 01 CO2 23 20 - 29 mmol/L [facility] - 01 Calcium 9.3 8.7 - 10.2 mg/dL [facility] - 01 Protein, sr 7.0 6.0 - 8.5 g/dL [facility] - 01 Albumin 4.6 3.8 - 4.9 g/dL [facility] - 01 Globulin, Total 2.4 1.5 - 4.5 g/dL [facility] - 01 Bilirubin, Total 0.7 0.0 - 1.2 mg/dL [facility] - 01 Alk phos 66 44 - 121 IU/L [facility] - 01 AST 17 0 - 40 IU/L [facility] - 01 ALT 15 0 - 44 IU/L [facility] - 01 Blood 12/08/2024 10:1 8 AM CDT 12/08/2024 Narrative [facility] - 12/09/2024 9:36 AM CDT Performed at: [address] [place] [id number] Horn Player: Elijah Cunha PhD, Phone: [phone] Rosalee Keller MANAGER DRUG SAFETY LAB BLOOD ORDERABLES Final Resu lt Performing Organization Address [facility] de Phone Number [facility] - * Albumin Creatinine Ratio, Urine (06/05/2024 9:47 AM UNIVERSITY DEMONSTRATOR) Creatinine ur 130.4 Not Estab. mg/dL [facility] - 01 Microalbumin, ur 6.8 Not Estab. ug/mL [facility] - 01 Microalbumin/cre at ratio 5 0 - 29 mg/g creat [facility] - 01 Comment: Normal: 0 - 29 Moderately increased: 30 - 300 Severely increased: >300 Urine 06/05/2024 9:47 AM UNIVERSITY DEMONSTRATOR 06/05/2024 Narrative [facility] - 06/06/2024 4:09 PM UNIVERSITY DEMONSTRATOR Performed at: [address] [place] [id number] Horn Player: Elijah Cunha PhD, Phone: [phone] us Riana Bernabe MANAGER DRUG SAFETY LAB URINE ORDERABLES Final Res ult Performing Organization Address [facility] Co de Phone Number [facility] - * PSA screen (04/10/2022 9:16 AM CDT) PSA 1.1 0.0 - 4.0 ng/mL [facility] - 01 Comment: Ar ECLIA methodology. According to the [place] [employer], Serum PSA should decrease and remain at undetectable levels after radical prostatectomy. The AUA defines biochemical recurrence as an initial PSA value 0.2 ng/mL or greater followed by a subsequent confirmatory PSA value 0.2 ng/mL or greater. Values obtained with different assay methods or kits cannot be used interchangeably. Results cannot be interpreted as absolute evidence of the presence or absence of malignant disease. Blood 04/10/2022 9:16 AM CDT 04/10/2022 Narrative [facility] - 04/11/2022 9:36 AM CDT Performed at: - [address] [id number] Horn Player: Elijah Cunha PhD, Phone: [phone] us Steph Suarez MD LAB BLOOD ORDERABLES Elissa rodriguez Result [facility] - 01 from Last 3 Months or Most Recently Relevant to Health Maintenance Insurance [employer] [place] [employer] [place] Care Teams Motor Installer Relationship Specialty Start Date End Date Steph Suarez MD PCP - General Family Medicine 10/18/18
[2025-05-28 05:12] VITALS: BP 105/61; PULSE 85; RESP 18; O2SAT 100
[2025-05-28 07:45] VITALS: BP 126/84; PULSE 66; RESP 16; O2SAT 100
== END 2025-05-28 07:49 | disposition home or self-care (01) ==
PROVIDERS: Physician Assistant; Emergency Provider Student in an Organized Health Care Education/Training Program
DX: E11.65 Type 2 diabetes mellitus with hyperglycemia (principal); R10.31 Right lower quadrant pain
CPT/HCPCS: 36415; 74177; 80053; 81003; 82948; 83690; 85025; 99284; Q9967